=== PATIENT | female | born 1990 | race Caucasian/White ===

== ENCOUNTER → 2024-06-29 13:37 | Outpatient (REF) | payer OTHER, SELFPAY | LOC: WDC 13:37 | PROVIDERS: ATTENDING PHYSICIAN Surgery; FAMILY PHYSICIAN Family Medicine; REFERRING PHYSICIAN Nurse Practitioner Obstetrics & Gynecology | DX: R92.8 Other abnormal and inconclusive findings on diagnostic imaging of breast (principal) | CPT/HCPCS: 76642 ==

== ENCOUNTER → 2024-12-13 14:05 | Outpatient (REF) | payer OTHER, SELFPAY | LOC: WDC 14:05 | PROVIDERS: ATTENDING PHYSICIAN Surgery; FAMILY PHYSICIAN Family Medicine | DX: R92.8 Other abnormal and inconclusive findings on diagnostic imaging of breast (principal); N64.4 Mastodynia | CPT/HCPCS: 76642 ==

== ENCOUNTER → 2025-02-08 12:41 | Outpatient (REF) | payer OTHER, SELFPAY | LOC: MRI 3T 12:41 | PROVIDERS: ATTENDING PHYSICIAN Nurse Practitioner Adult Health; FAMILY PHYSICIAN Family Medicine | DX: Z91.89 Other specified personal risk factors, not elsewhere classified (principal); R92.8 Other abnormal and inconclusive findings on diagnostic imaging of breast | CPT/HCPCS: 77049; A9585 ==